=== PATIENT | female | born 1955 | race Caucasian/White ===

== ENCOUNTER 2016-08-09 23:12 | Emergency (ER) | payer OTHER ==
[2016-08-09] MEDS ORDERED: PROMETHAZINE 25 MG/ML VIAL IV ONE (23:21)
[2016-08-09] MEDS ORDERED: MORPHINE 4 MG/ML INJECTION IV ONE (23:21)
[2016-08-09] MEDS ORDERED: NS 1,000 ML IV ONE (23:21)
[2016-08-09 23:31] VITALS: TEMP 98.1; BMI 27.5
--- NOTE | 2016-08-09 23:37 | EDPRACDOC ---
- General Information Chief Complaint: Nausea,Vomiting,Diarrhea Stated Complaint: N/V Time Seen by Provider: 08/09/16 23:16 Information Source: Patient, Animal Care Technician Mode Of Arrival: Ambulance Home Medications: Home Medications Ondansetron [Zofran Odt] 4 mg PO Q6H PRN #20 tab.rapdis 08/10/16 Sulfamethoxazole/Trimethoprim [Bactrim Ds Tablet] 1 tab PO BID #14 tab 08/10/16 Allergies/Adverse Reactions: Allergies Allergy/AdvReac Type Severity Reaction Status Date / Time No Known Allergies Allergy Verified 08/09/16 23:31 - History of Present Illness Onset: TODAY HPI: PT PRESENTS WITH NAUSEA, VOMITING AND HEADACHE. STATES SHE WAS SEEN YESTERDAY WITH CHRONIC NECK AND SHOULDER PAIN. STATES THIS AM SHE BEGAN WITH HEADACHE, NAUSEA AND VOMITING. STATES SHE HAS CONTINUED TO VOMIT THROUGHOUT THE DAY. Symptoms Occured: Reports: Spontaneous Duration: Reports: Intermittent Emesis: Reports: Bilious Recent: Denies: Travel, Contact Exposure, Ingestion of ETOH, Ingestion of spoiled food, None, O Pain Quality: Reports: Aching Pain Severity: Mild Pain Location: Reports: Diffuse : No History of: Denies: Abdominal Surgery, UTI, Ectopic, PID, Urolithiasis, Similar Pain (dx) Relevant History of: Denies: Abdominal Surgery, Diabetes, Contact Exposure, Hydrocephalus, HIV, Immunosuppression, Irritable Bowel Disease, Cystic Fibrosis , Lactose Intolerance, None, O Associated Signs & Symptoms: Reports: Nausea, Vomiting Oral Intake: Decreased Urinary Output: Normal ED Past Medical History - History Reviewed Yes Nurses notes reviewed and agree except as marked EDM Review of Systems - Review of Systems ROS Negative Except as Marked: Yes All systems reviewed and were negative except as marked - Physical Exam Constitutional: Alert Oriented to: Time, Person, Place Last recorded Vital Signs: Oxygen Pulse Oxygen Saturation O2 Device Oxygen Flow Rate Fraction of Inspired Oxygen ( FIO2) - HEENT Head: Normal ( normocephalic) Eye Exam: Normal (PERRL, EOMI, Sclera white) Oropharynx: Membranes Dry Tympanic Membrane: Normal Nose: No Symptoms Reported (septum midline) Neck: Normal (FROM, trachea at midline) - Respiratory/Cardiovascular Respiratory: Normal - CTA (BBS clear to auscultation without adventitious sounds ) Cardiovascular: Normal (RRR without murmur, gallop or rub) - GI Auscultation: Normal (NABS) Palpation: Normal (Soft,No rebound or guarding, non distended) Tenderness: Non tender Almanza's Sign: Negative Rectal Exam: Deferred - Musculoskeletal Back: Normal (Non-Tender) Extremities: Normal (Normal tone, Pulses 2+ No cyanosis or edema, FROM) - Integumentary Skin: Normal, Warm, Dry Lymphatics: Normal (no adenopathy) - Neurologic Memory Impaired: Normal Motor Function: Normal (Normal tone, Pulses 2+ No cyanosis or edema, FROM) Cranial Nerve: Normal (CN II-X11 intact sensation, strength 5/5) Cerebellar: Normal Mood Description: Normal Perception: Normal - Differential Diagnosis Other - Results 08/09/16 23:40 08/09/16 23:40 - EKG EKG #1 EKG Time: 23:36 -: Yes EKG interpreted by me Rate: bpm: 85 Gonzales: Normal Rhythm: NSR Block: None Hypertrophy: None ST: Nonsp Decision Time to Discharge: 00:43 - Departure Disposition: Home Condition: Stable Final Diagnosis: Nausea and vomiting UTI (urinary tract infection) Qualifiers: Urinary tract infection type: acute cystitis Hematuria presence: with hematuria Qualified Code(s): N30.01 - Acute cystitis with hematuria Instructions: Urinary Tract Infection in Women (ED), Dysuria, Acute Nausea and Vomiting (ED) Education/Counseling Given To: Patient Education/Counseling Given Regarding: Diagnosis, Treatment, Prognosis, Follow Up Referrals: Isa Sanchez MD [Primary Care Provider] - One Week Prescriptions: Ondansetron [Zofran Odt] 4 mg PO Q6H PRN #20 tab.rapdis PRN Reason: Nausea/Vomiting Sulfamethoxazole/Trimethoprim [Bactrim Ds Tablet] 1 tab PO BID #14 tab Additional Instructions: INCREASE FLUID INTAKE. FOLLOW UP WITH PRIMARY CARE PROVIDER NEXT WEEK. TAKE ALL ANTIBIOTICS PRESCRIBED. RETURN TO THE ED FOR WORSENING SYMPTOMS OR CONCERNS.
[2016-08-09 23:50] LABS: AUTOMATED BASOPHIL 0.4 % (0-2); AUTOMATED EOSINOPHIL 0.2 % (0-5); AUTOMATED LYMPH 9.6 % (17-44); AUTOMATED NEUTROPHIL 84.8 % (45-76); MPV 7.1 fL (7.4-10.4)
[2016-08-10 00:02] LABS: BLOOD UREA NITROGEN 21 MG/DL (7-17); CALCIUM 10.2 MG/DL (8.4-10.2); CALCULATED OSMOLALITY 279 MOs/Kg (270-290); CHLORIDE 101 mEq/L (98-107); CPK TOTAL WITH POSSIBLE MB 82 IU/L (30-134); GLUCOSE 182 MG/DL (70-99); PARTIAL THROMB. TIME 21.2 SEC (22-35); PT-INR 1.1; SODIUM LEVEL 141 mEq/L (137-146); TOTAL PROTEIN 7.7 G/DL (6.3-8.2)
--- NOTE | 2016-08-10 00:10 | DIRPT ---
CLINICAL DATA: Acute onset of headache, nausea and vomiting. Initial encounter. EXAM: CT HEAD WITHOUT CONTRAST TECHNIQUE: Contiguous axial images were obtained from the base of the skull through the vertex without intravenous contrast. COMPARISON: None. FINDINGS: There is no evidence of acute infarction, mass lesion, or intra- or extra-axial hemorrhage on CT. Focal white matter hypoattenuation is noted at the left frontal lobe, which may reflect remote ischemic injury. The posterior fossa, including the cerebellum, brainstem and fourth ventricle, is within normal limits. The third and lateral ventricles, and basal ganglia are unremarkable in appearance. The cerebral hemispheres demonstrate grossly normal felix-white differentiation. No mass effect or midline shift is seen. There is no evidence of fracture; visualized osseous structures are unremarkable in appearance. The orbits are within normal limits. The paranasal sinuses and mastoid air cells are well-aerated. No significant soft tissue abnormalities are seen. IMPRESSION: 1. No acute intracranial pathology seen on CT. 2. Focal white matter hypoattenuation at the left frontal lobe may reflect remote ischemic injury. Electronically Signed By: Isaiah Cleaning M.D. On: 08/10/2016 00:07
--- NOTE | 2016-08-10 00:23 | DIRPT ---
CLINICAL DATA: 61-year-old female with vomiting EXAM: CHEST 2 VIEW COMPARISON: None. FINDINGS: The heart size and mediastinal contours are within normal limits. Both lungs are clear. The visualized skeletal structures are unremarkable. IMPRESSION: No active cardiopulmonary disease. Electronically Signed By: Sage Suero M.D. On: 08/10/2016 00:21
[2016-08-10 00:38] LABS: LEUKOCYTES/URINE NEG (NEGATIVE); URINE OCCULT BLOOD NEG (NEG/TRACE); WBC/URINE TNTC (0-5)
[2016-08-10 00:39] LABS: NITRITE/URINE NEG (NEGATIVE)
[2016-08-10] MEDS ORDERED: TRIMETHOPRIM-SULFAMETHOXAZOLE TAB PO ONE (00:44)
[2016-08-10] MEDS ORDERED: CIPROFLOXACIN HCL 500 MG TAB PO ONE (01:01)
[2016-08-10 01:22] VITALS: BP 115/61; PULSE 80
== END 2016-08-10 01:18 | disposition home or self-care (01) ==
LOC: ED 23:12
DX: N30.01 Acute cystitis with hematuria (principal); R51 Headache
CPT/HCPCS: 36415; 70450; 71020; 80053; 81001; 82550; 83880; 84484; 85025; 85610; 85730; 87086; 93005; 96361; 96374; 96375; 99283; J2270; J2550; J3490